=== PATIENT | female | born 1990 | race Caucasian/White ===

== ENCOUNTER 2016-12-24 16:22 | Emergency (ER) | payer MEDICAID ==
[2016-12-24] MEDS ORDERED: PROAIR HFA8.5 GM INH (16:49)
== END 2016-12-24 18:19 ==
LOC: EDMED 16:22
PROC: 2W3QXYZ Immobilization of Right Lower Leg using Other Device (ICD-10-PCS; principal; 2016-12-24)
DX: S93.401A Sprain of unspecified ligament of right ankle, initial encounter (principal); F17.200 Nicotine dependence, unspecified, uncomplicated; W01.0XXA Fall on same level from slipping, tripping and stumbling without subsequent striking against object, initial encounter; Y92.89 Other specified places as the place of occurrence of the external cause